=== PATIENT | male | born 1950 | race Caucasian/White ===

== ENCOUNTER 2020-04-25 03:33 | Outpatient (CLI) | payer MEDICARE, SELFPAY ==
[2020-04-25 13:05] LABS: Albumin 3.7 g/dL (3.4-5.0); Anion Gap 5.7 mmol/L (3-11); BUN 10 mg/dL (7-18); CO2 27.3 mmol/L (21.0-32.0); Calcium 8.7 mg/dL (8.5-10.1); Chloride 103 mmol/L (98-107); PHOSPHORUS 2.6 mg/dL (2.6-4.7); Potassium 4.9 mmol/L (3.5-5.1); Sodium 136 mmol/L (136-145)
== END 2020-04-25 03:53 ==
PROVIDERS: Internal Medicine; Visit Provider Internal Medicine
DX: Z94.0 Kidney transplant status (principal); Z79.899 Other long term (current) drug therapy
CPT/HCPCS: 36415; 80051; 84520; 80197; 82040; 82310; 82565; 84100

== ENCOUNTER 2020-08-29 03:04 | Outpatient (CLI) | payer MEDICARE, SELFPAY ==
[2020-08-29 15:14] LABS: Bilirubin Small (Negative); Blood Negative (Negative); Clarity Clear (Clear); Glucose Negative (Negative); Ketones Trace mg/dL (Negative); Leukocyte Esterase Negative (Negative); Nitrite Negative (Negative); Specific Gravity 1.025 (1.005-1.025); Urobilinogen 0.2 EU/dL (Up TO 0.2); pH 5.5 (5-8)
[2020-08-29 16:03] LABS: Abs Immature Grans 0.03 10^3/uL (0.0-0.06); Absolute Basophil Count 0.02 10^3/uL (0.0-0.2); Absolute Eosinophil Count 0.22 10^3/uL (0.0-0.7); Absolute Lymphocyte Count 1.66 10^3/uL (1.2-3.4); Absolute Neutrophil Count 4.78 10^3/uL (1.2-6.7); Basophils % 0.3; Eosinophils % 3.1; HCT 43.9 % (40.0-50.0); HGB 15.1 g/dL (13.5-17.5); Immature Grans % 0.4; MCH 29.5 pg (27.0-33.0); MCHC 34.4 % (32.0-36.0); MCV 85.9 fL (80-95); MPV 10.8 fL (8.0-11.0); Monocytes % 6.9; Neutrophils % 66.3; Nucleated RBC 0 %; Platelet Count 208 10^3/uL (130-400); RBC 5.11 10^6/uL (4.36-5.78); RDW 12.7 % (11.8-14.1); RDW-SD 39.8 fL; WBC 7.21 10^3/uL (4.4-10.8)
[2020-08-29 16:11] LABS: Albumin 3.8 g/dL (3.4-5.0); Anion Gap 9.5 mmol/L (3-11); BUN 12 mg/dL (7-18); CO2 24.5 mmol/L (21.0-32.0); CREATININE 1.2 mg/dL (0.70-1.30); Calcium 8.8 mg/dL (8.5-10.1); Chloride 105 mmol/L (98-107); PHOSPHORUS 3.4 mg/dL (2.6-4.7); Potassium 4.5 mmol/L (3.5-5.1); Sodium 139 mmol/L (136-145)
[2020-08-29 16:15] LABS: Hemoglobin A1C 5.6 % (<5.7)
[2020-08-29 16:23] LABS: Calculated LDL 83 mg/dL (<100); Cholesterol 162 mg/dL (<200); HDL Cholesterol 53 mg/dL (40-60); Triglyceride 132 mg/dL (<150)
[2020-08-30 10:43] LABS: Parathyroid Hormone,Intact 106 pg/mL (19-88)
[2020-08-31 12:37] LABS: CMV DNA Detect/Quant, P Undetected IU/mL (Undetected)
[2020-08-31 15:19] LABS: BK Virus PCR, Quant, P None Detected
== END 2020-08-29 03:05 | disposition home or self-care (01) ==
LOC: LBO 03:04
PROVIDERS: PCP Nurse Practitioner Family; Visit Provider Internal Medicine
DX: Z94.0 Kidney transplant status (principal); Z79.899 Other long term (current) drug therapy
CPT/HCPCS: 36415; 80051; 80061; 84520; 80197; 81003; 82040; 82310; 82565; 83036; 83970; 84100; 85025; 87497; 87799

== ENCOUNTER 2020-09-21 10:29 | Outpatient (CLI) | payer MEDICARE, SELFPAY ==
--- NOTE | 2020-09-21 10:15 | RT.EKG_ITS ---
APPROVED REPORT Exam: Resting ECG Reason for Exam: per Matthew Patient Location: O HR:52 bpm ECG Measurements Heart Rate 52 AXIS WY 172 P 51 QRSd 88 QRS -64 QT 444 T 91 QTc 412 Conclusion Bradycardia with irregular rate...V-rate 42- 65, mean < 60 Left anterior fascicular block...axis(240,-40), init forces inf Nonspecific T abnrm, anterolateral leads...T <-0.10mV, I aVL V2-V6
== END 2020-09-21 10:30 | disposition home or self-care (01) ==
LOC: DI.CM 10:30
PROVIDERS: PCP Nurse Practitioner Family; Visit Provider Nurse Practitioner Family
DX: I10 Essential (primary) hypertension (principal)
CPT/HCPCS: 93010

== ENCOUNTER 2020-11-03 02:39 | Outpatient (CLI) | payer MEDICARE, SELFPAY ==
[2020-11-03 09:20] LABS: HGB 15.3 g/dL (13.5-17.5); MCH 28.4 pg (27.0-33.0); MCHC 33.3 % (32.0-36.0); MCV 85.3 fL (80-95); MPV 10.5 fL (8.0-11.0); Platelet Count 193 10^3/uL (130-400); RBC 5.39 10^6/uL (4.36-5.78); RDW 12.8 % (11.8-14.1); RDW-SD 39.4 fL; WBC 5.33 10^3/uL (4.4-10.8)
[2020-11-03 09:21] LABS: Bilirubin Negative (Negative); Blood Trace-intact (Negative); Clarity Clear (Clear); Glucose Negative (Negative); Ketones Negative (Negative); Leukocyte Esterase Negative (Negative); Nitrite Negative (Negative); Urobilinogen 0.2 EU/dL (Up TO 0.2); pH 5.5 (5-8)
[2020-11-03 09:36] LABS: Hemoglobin A1C 5.7 % (<5.7)
[2020-11-03 10:26] LABS: Albumin 3.8 g/dL (3.4-5.0); Anion Gap 9.5 mmol/L (3-11); BUN 14 mg/dL (7-18); CO2 24.5 mmol/L (21.0-32.0); CREATININE 1.2 mg/dL (0.70-1.30); Calcium 8.9 mg/dL (8.5-10.1); Calculated LDL 94 mg/dL (<100); Chloride 104 mmol/L (98-107); Cholesterol 170 mg/dL (<200); Estimated GFR 59.86 (mL/min/1.73m2); HDL Cholesterol 59 mg/dL (40-60); Potassium 4.9 mmol/L (3.5-5.1); Sodium 138 mmol/L (136-145); Triglyceride 89 mg/dL (<150)
[2020-11-04 12:16] LABS: Tacrolimus 5.9 ng/mL (See Note)
[2020-11-06 09:02] LABS: Parathyroid Hormone,Intact 58 pg/mL (19-88)
[2020-11-07 00:25] LABS: CMV DNA Detect/Quant, P Undetected IU/mL (Undetected)
== END 2020-11-03 02:40 | disposition home or self-care (01) ==
LOC: LBO 02:39
PROVIDERS: PCP Nurse Practitioner Family; Visit Provider Internal Medicine
DX: Z94.0 Kidney transplant status (principal); Z79.899 Other long term (current) drug therapy
CPT/HCPCS: 36415; 80051; 80061; 84520; 85027; 80197; 81003; 81015; 82040; 82310; 82565; 83036; 83970; 84100; 85025; 87497; 87799

== ENCOUNTER 2021-03-05 14:51 | Outpatient (CLI) | payer MEDICARE, SELFPAY ==
--- NOTE | 2021-03-05 12:15 | DI.RAD_ITS ---
Exam(s) XR CHEST 2V PA LATERAL EXAM: XR CHEST 2V PA LATERAL CLINICAL HISTORY: persistent cough X 4 weeks,CTA, URI, R05.9, J06.9. TECHNIQUE: 2D digital imaging was performed. COMPARISON: No exams were available for comparison FINDINGS: Heart size is normal. There is, however, a large mass in the left suprahilar region. Not silhouetti ng the adjacent abdominal aorta Right lung is clear. No pleural effusions. No pulmonary edema. IMPRESSION: Left suprahilar mass. Contrast infused chest CT scan recommended. DATA REPOSITORY: RADIATION DOSE DELIVERED:
== END 2021-03-05 15:11 ==
PROVIDERS: PCP Nurse Practitioner Family; Visit Provider Family Medicine
DX: J06.9 Acute upper respiratory infection, unspecified (principal); R05.9 Cough, unspecified; R91.8 Other nonspecific abnormal finding of lung field
CPT/HCPCS: 71046

== ENCOUNTER 2021-03-05 19:20 | Outpatient (REF) | payer MEDICARE, SELFPAY ==
[2021-03-07 17:19] LABS: COVID-19 RT-PCR UVMMC Result Negative (Negative)
== END 2021-03-05 19:21 | disposition home or self-care (01) ==
LOC: LBN 19:20
PROVIDERS: PCP Nurse Practitioner Family; Visit Provider Family Medicine
DX: Z20.822 Contact with and (suspected) exposure to COVID-19 (principal); R50.9 Fever, unspecified
CPT/HCPCS: U0003

== ENCOUNTER 2021-03-19 01:06 | Outpatient (CLI) | payer MEDICARE, SELFPAY ==
--- NOTE | 2021-03-19 08:15 | DI.CT_ITS ---
Exam(s) CT CHEST W EXAM: CT CHEST W CLINICAL HISTORY: follow up, possible left hilar mass on cxr,cough,r93.89,r05.9 TECHNIQUE: Imaging Protocol: Axial computed tomography images with coronal and sagittal reformatted images were created and reviewed CONTRAST MATERIAL: Intravenous: Omnipaque 350 Contrast volume:70 cc COMPARISON: CR XR CHEST 2V PA LATERAL from 03/05/2021 FINDINGS: Tracheobronchial tree: No bronchiectasis or mucous plugging. Mediastinum and [place]: Large lobulated soft tissue mass in the anterior mediastinum measuring 8.2 x 7. 0 by 10 cm. There is compression and mild invasion into the left brachiocephalic vein. There are no calcifications or fatty components. There is no adjacent bony destruction. There is a tiny pericar dial effusion. There is no hilar adenopathy or middle mediastinal adenopathy. There is a small amou nt of fluid in the anterior pericardium. Pulmonary parenchyma: No consolidation or dominant measurable mass. Pleura: No effusion or pneumothorax. Heart: The heart is mildly dilated. Mild coronary artery calcifications are seen. Aorta: Thoracic aorta non-dilated. Upper abdomen: Multiple liver cysts. Dilated intrahepatic ducts mid left lobe of the liver. Multip le renal cysts. Lymph nodes: Within normal limits. Bones: Mild degenerative changes are noted in the spine. Soft tissues: Unremarkable. IMPRESSION: Large anterior mediastinal mass. The findings may be of thymic origin, germ cell origin or related t o lymphoma. RADIATION DOSE DELIVERED: 466.8mGy.cm Total DLP DATA REPOSITORY: All CT scans at this facility are submitted to the National Radiology Data Registry (NRDR) Dose Index Registry (DIR) with the [employer] ([employer]). RADIATION OPTIMIZATION: All CT scans at this facility use at least one of these dose optimization te chniques: automated exposure control; mA and/or kV adjustment per patient size (includes targeted exa ms where dose is matched to clinical indication); or iterative reconstruction.
[2021-03-19 13:04] LABS: CREATININE 1.1 mg/dL (0.70-1.30)
[2021-03-19] MEDS: Omnipaque 350 MG/ML 100 ML BTL 70 ML IJ (13:23)
== END 2021-03-19 01:26 ==
PROVIDERS: PCP Nurse Practitioner Family; Visit Provider Family Medicine
DX: R05.9 Cough, unspecified (principal); R93.89 Abnormal findings on diagnostic imaging of other specified body structures
CPT/HCPCS: 71260; 82565; J3490